=== PATIENT | female | born 1950 | race Caucasian/White ===

== ENCOUNTER 2016-03-12 | Outpatient (CLI) | payer MEDICARE, MEDICAID | END 2016-03-12 14:31 | disposition home or self-care (01) ==

== ENCOUNTER 2016-04-10 | Outpatient (CLI) | payer MEDICARE, MEDICAID | END 2016-04-10 15:01 | disposition home or self-care (01) ==

== ENCOUNTER 2016-04-13 15:45 | Outpatient (CLI) | payer MEDICARE, MEDICAID | END 2016-04-13 15:46 | disposition home or self-care (01) | DX: G89.29 Other chronic pain (principal); I81 Portal vein thrombosis; E86.0 Dehydration; R30.0 Dysuria; F32.9 Major depressive disorder, single episode, unspecified; Z63.4 Disappearance and death of family member; Z74.01 Bed confinement status; D47.3 Essential (hemorrhagic) thrombocythemia; D68.61 Antiphospholipid syndrome; Z79.01 Long term (current) use of anticoagulants; Z79.899 Other long term (current) drug therapy; S80.12XA Contusion of left lower leg, initial encounter; X58.XXXA Exposure to other specified factors, initial encounter; Y92.009 Unspecified place in unspecified non-institutional (private) residence as the place of occurrence of the external cause; Z86.73 Personal history of transient ischemic attack (TIA), and cerebral infarction without residual deficits; Z87.440 Personal history of urinary (tract) infections; Z51.5 Encounter for palliative care ==

== ENCOUNTER 2016-04-19 16:00 | Outpatient (CLI) | payer MEDICARE, MEDICAID | END 2016-04-19 16:01 | disposition home or self-care (01) | DX: G89.29 Other chronic pain (principal); I81 Portal vein thrombosis; D47.3 Essential (hemorrhagic) thrombocythemia; D68.61 Antiphospholipid syndrome; F43.21 Adjustment disorder with depressed mood; F41.9 Anxiety disorder, unspecified; R62.7 Adult failure to thrive; S80.12XD Contusion of left lower leg, subsequent encounter; I69.351 Hemiplegia and hemiparesis following cerebral infarction affecting right dominant side; Z87.440 Personal history of urinary (tract) infections; Z79.899 Other long term (current) drug therapy; Z91.81 History of falling; Z74.01 Bed confinement status; Z60.2 Problems related to living alone; Z79.891 Long term (current) use of opiate analgesic; Z66 Do not resuscitate; Z79.01 Long term (current) use of anticoagulants; Z51.5 Encounter for palliative care; Z63.4 Disappearance and death of family member ==

== ENCOUNTER 2016-04-26 | Outpatient (CLI) | payer MEDICARE, MEDICAID | END 2016-04-26 12:46 | disposition home or self-care (01) ==

== ENCOUNTER 2016-05-13 08:00 | Outpatient (CLI) | payer MEDICARE, MEDICAID | END 2016-05-13 08:01 | disposition home or self-care (01) | DX: Z13.89 Encounter for screening for other disorder (principal) ==

== ENCOUNTER 2016-05-23 11:15 | Outpatient (CLI) | payer MEDICARE, MEDICAID | END 2016-05-23 11:16 | disposition home or self-care (01) | DX: Z51.5 Encounter for palliative care (principal); J32.9 Chronic sinusitis, unspecified; R63.0 Anorexia; F43.21 Adjustment disorder with depressed mood; G89.29 Other chronic pain; I81 Portal vein thrombosis; K59.00 Constipation, unspecified; R19.7 Diarrhea, unspecified; D47.3 Essential (hemorrhagic) thrombocythemia; Z79.899 Other long term (current) drug therapy; K76.6 Portal hypertension; I85.10 Secondary esophageal varices without bleeding; I69.311 Memory deficit following cerebral infarction; I69.318 Other symptoms and signs involving cognitive functions following cerebral infarction; I69.398 Other sequelae of cerebral infarction; R26.89 Other abnormalities of gait and mobility; Z66 Do not resuscitate; Z63.4 Disappearance and death of family member; G20 Parkinson's disease ==

== ENCOUNTER 2016-05-24 08:00 | Outpatient (CLI) | payer MEDICARE, MEDICAID | END 2016-05-24 23:59 | DX: D47.3 Essential (hemorrhagic) thrombocythemia (principal); D68.312 Antiphospholipid antibody with hemorrhagic disorder; D64.9 Anemia, unspecified ==

== ENCOUNTER 2016-05-25 15:10 | Outpatient (CLI) | payer MEDICARE, MEDICAID | END 2016-05-25 15:11 | disposition home or self-care (01) | DX: D47.3 Essential (hemorrhagic) thrombocythemia (principal); D64.9 Anemia, unspecified; D68.32 Hemorrhagic disorder due to extrinsic circulating anticoagulants ==

== ENCOUNTER 2016-06-07 13:00 | Outpatient (CLI) | payer MEDICARE, MEDICAID | END 2016-06-07 13:01 | disposition home or self-care (01) | DX: Z51.5 Encounter for palliative care (principal); J32.9 Chronic sinusitis, unspecified; R63.0 Anorexia; G89.29 Other chronic pain; I81 Portal vein thrombosis; Z79.891 Long term (current) use of opiate analgesic; K58.2 Mixed irritable bowel syndrome; D47.3 Essential (hemorrhagic) thrombocythemia; Z79.899 Other long term (current) drug therapy; D68.61 Antiphospholipid syndrome; K76.6 Portal hypertension; I85.10 Secondary esophageal varices without bleeding; I69.311 Memory deficit following cerebral infarction; I69.318 Other symptoms and signs involving cognitive functions following cerebral infarction; I69.398 Other sequelae of cerebral infarction; R26.89 Other abnormalities of gait and mobility; Z66 Do not resuscitate; Z63.4 Disappearance and death of family member; Z95.828 Presence of other vascular implants and grafts ==

== ENCOUNTER 2016-06-17 12:36 | Outpatient (CLI) | payer MEDICARE, MEDICAID | END 2016-06-17 12:37 | disposition critical access hospital (66) | DX: M79.651 Pain in right thigh (principal); M25.521 Pain in right elbow; W08.XXXA Fall from other furniture, initial encounter; Y92.002 Bathroom of unspecified non-institutional (private) residence as the place of occurrence of the external cause | CPT/HCPCS: A0425; A0429 ==

== ENCOUNTER 2016-06-17 12:42 | Emergency (ER) | payer MEDICARE, MEDICAID | END 2016-06-17 18:33 | disposition home or self-care (01) | DX: S00.83XA Contusion of other part of head, initial encounter (principal); S80.11XA Contusion of right lower leg, initial encounter; S50.01XA Contusion of right elbow, initial encounter; W01.0XXA Fall on same level from slipping, tripping and stumbling without subsequent striking against object, initial encounter; Y92.019 Unspecified place in single-family (private) house as the place of occurrence of the external cause; M16.11 Unilateral primary osteoarthritis, right hip; M17.11 Unilateral primary osteoarthritis, right knee; D68.61 Antiphospholipid syndrome; I10 Essential (primary) hypertension; Z86.73 Personal history of transient ischemic attack (TIA), and cerebral infarction without residual deficits; I85.00 Esophageal varices without bleeding; M19.90 Unspecified osteoarthritis, unspecified site; Z79.01 Long term (current) use of anticoagulants ==

== ENCOUNTER 2016-06-21 09:15 | Outpatient (CLI) | payer MEDICARE, MEDICAID | END 2016-06-21 09:16 | disposition home or self-care (01) | DX: Z51.5 Encounter for palliative care (principal); M25.561 Pain in right knee; M17.11 Unilateral primary osteoarthritis, right knee; J32.0 Chronic maxillary sinusitis; R63.0 Anorexia; F32.9 Major depressive disorder, single episode, unspecified; I81 Portal vein thrombosis; G89.29 Other chronic pain; Z79.891 Long term (current) use of opiate analgesic; K58.2 Mixed irritable bowel syndrome; D47.3 Essential (hemorrhagic) thrombocythemia; Z79.899 Other long term (current) drug therapy; D68.61 Antiphospholipid syndrome; I69.311 Memory deficit following cerebral infarction; I69.398 Other sequelae of cerebral infarction; R26.9 Unspecified abnormalities of gait and mobility; Z66 Do not resuscitate; S00.83XD Contusion of other part of head, subsequent encounter; S50.01XD Contusion of right elbow, subsequent encounter ==

== ENCOUNTER 2016-06-23 08:00 | Outpatient (CLI) | payer MEDICARE, MEDICAID | END 2016-06-23 08:01 | DX: E88.9 Metabolic disorder, unspecified (principal); R68.89 Other general symptoms and signs ==

== ENCOUNTER 2016-06-26 08:00 | Outpatient (CLI) | payer MEDICARE, MEDICAID | END 2016-06-26 08:01 | DX: N39.0 Urinary tract infection, site not specified (principal) ==

== ENCOUNTER 2016-07-01 13:00 | Outpatient (CLI) | payer MEDICARE, MEDICAID | END 2016-07-01 13:01 | DX: R19.5 Other fecal abnormalities (principal) ==

== ENCOUNTER 2016-07-03 13:15 | Outpatient (CLI) | payer MEDICARE, MEDICAID | END 2016-07-03 13:16 | disposition home or self-care (01) | DX: Z51.5 Encounter for palliative care (principal); M25.561 Pain in right knee; J32.9 Chronic sinusitis, unspecified; K52.1 Toxic gastroenteritis and colitis; T36.0X5A Adverse effect of penicillins, initial encounter; K58.2 Mixed irritable bowel syndrome; R63.0 Anorexia; I81 Portal vein thrombosis; G89.29 Other chronic pain; Z79.891 Long term (current) use of opiate analgesic; F32.9 Major depressive disorder, single episode, unspecified; E87.6 Hypokalemia; D47.3 Essential (hemorrhagic) thrombocythemia; Z79.899 Other long term (current) drug therapy; D68.61 Antiphospholipid syndrome; Z63.4 Disappearance and death of family member; M17.0 Bilateral primary osteoarthritis of knee; R41.89 Other symptoms and signs involving cognitive functions and awareness; R41.3 Other amnesia ==

== ENCOUNTER 2016-07-09 22:02 | Outpatient (CLI) | payer MEDICARE, MEDICAID | END 2016-07-09 22:03 | disposition home or self-care (01) | DX: D47.3 Essential (hemorrhagic) thrombocythemia (principal); K21.9 Gastro-esophageal reflux disease without esophagitis; E78.5 Hyperlipidemia, unspecified ==

== ENCOUNTER 2016-07-18 08:00 | Outpatient (CLI) | payer MEDICARE, MEDICAID | END 2016-07-18 08:01 | disposition home or self-care (01) | DX: E87.5 Hyperkalemia (principal) ==

== ENCOUNTER 2016-07-26 10:15 | Outpatient (CLI) | payer MEDICARE, MEDICAID ==
--- NOTE | 2016-07-29 11:36 | CONSULTATION NOTE ---
DATE OF CONSULTATION: 07/26/2016 00:00:00 REQUESTING PROVIDER: Dora Montenegro MD. TIME OF VISIT: 10:15-10:45. TOPIC: Followup palliative care consult. The patient is seen in her home setting, which is now [facility]. BRIEF HISTORY OF PRESENT ILLNESS UPDATE: This is a 65-year-old woman with essential thrombocythemia o n hydroxyurea as well as hypercoagulability state attributed to her antiphospholipid antibody JAK2 di sease. She is currently at [facility] as a result of needing supportive care because of the of her . Her was her primary care provider and was caring for her at home. She has had a very difficult course over the last several months, but currently is doing a little bit bet ter. She though continues to be more introvert and withdrawn and spends much of her time in the room. Her family is attempting to get her relocated closer to her sister and step daughters down in [place] and as a result she was out of the facility for most of the day yesterday. Today, she presents with severe fatigue and had slept poorly last night, so is very tired and less interactive than usual. She does report her abdominal pain is adequately controlled on her current regimen, which is her morphin e 45 mg b.i.d. She does use oxycodone 5 mg tablets depending on her activity level and also her eatin g. She tends to always rate her pain up at an 8, 9 and 10. It is right upper quadrant in nature and t ends to exacerbate after eating and in the late evening, she takes anywhere from 1-4 doses which are 3 tabs at a time, usually with good relief. Out of the last 2 weeks she has had 3 days with 3 doses, otherwise they have mostly been just daily, up to 2. The other symptom that often causes her quite a bit of distress is some intermittent loose stools. Sh e does use Lomotil to control this, usually looks like about 1 time a day, so 3 times in the last 2 w eeks, so this has improved. She had been on antibiotics for sinusitis that had exacerbated this. CODE STATUS: POLST FORM IS A DO NOT RESUSCITATE, LIMITED INTERVENTIONS. USE OF ANTIBIOTICS IF LIFE CA N BE PROLONGED. NO MEDICALLY ASSISTED NUTRITION. HER MEDICAL DPOA IS MOSES, HER STEPDAUGHTER, HER PHON E NUMBER IS [phone] FOR MEDICAL POWER OF SEAM HAMMERER AND HER FINANCIAL DURABLE POWER OF SEAM HAMMERER IS ODILON RAMIREZ, HER BIOLOGIC DAUGHTER. BRIEF SOCIAL HISTORY: The patient is currently at [facility] after the sudden of her on he r Medicaid benefits. The family continuing to try to find an acceptable living situation. The patient though is quite quiet and less interactive today did feel like it was going to be a good fit. She sanford s been receiving counseling with medical palliative care socially responsible investment adviser as this has been very difficul t as far as all these transitions and thus needing to transition yet to another setting and new careg nela. She tends to retreat when this happens and does have intermittent confusion that makes it more difficult sometimes for her to process this information. PERFORMANCE STATUS: The patient is independently transferring to the commode, she does walk short dis tances. She has had some pain with weightbearing, but this has improved. She still needs some assista nce though as far as cueing. Has been discharged from therapy services. Again, the concern is what is her level of care that she might need moving forward, though, does continue to try and be more indep endent. REVIEW OF SYSTEMS: The patient is feeling quite tired and fatigued from her outing yesterday. She is quiet and somewhat withdrawn. HEENT: Denies further trouble swallowing. CARDIOVASCULAR: Denies chest pain. RESPIRATORY: Reports her cough is resolving, mostly notices it at night. Her sinus stuff has improved . GASTROINTESTINAL: Diarrhea has improved. INTEGUMENTARY: Does have a bit of a rash on her right cheek, does not bother her. MUSCULOSKELETAL: She is spending more time in bed, concerned about more deconditioning. NEUROLOGIC: She does have some continued short-term memory issues, some difficulty with word finding and does report her tremors are bothering her more though they are not observed this visit. She does appear sleepy today. She has had more and more difficulty tracking things and often inaccurate in her reporting of symptoms. PSYCHIATRIC: See palliative care discussion. HEMATOLOGIC/IMMUNOLOGIC: Continues to see Oncology monthly. Her potassium is back in normal range at 4.3. PHYSICAL EXAMINATION: GENERAL APPEARANCE: The patient does appear quite frail, fatigued and sleepy. ENT: Her glasses are on. RESPIRATORY: Her breath sounds are clear. VITAL SIGNS: Her temperature is 95.9, O2 saturations 95%, pulse 72, blood pressure 102/64, her curren t weight is 103.9. ABDOMEN: Quite tender to palpation. She does have prominent varicose veins with abdominal distention. SKIN: Color quite pale. She does have a kind of a diffuse rosacea appearing rash on her right cheek. EXTREMITIES: She is in bed, able to move them on command. I did see her ambulate. PALLIATIVE CARE DISCUSSION/WHO IS PRESENT: Myself and the patient. She is reporting severe fatigue fr om her outing yesterday, difficulty sleeping last night. Is feeling quite tired. We kept the conversa tion to the minimum. Agreed I would revisit her next week for further processing of her depression an d anxiety, though she denies any distress at the current visit. IMPRESSION: This is a 65-year-old woman with multiple serious comorbidities, high symptom burden. She is feeling somewhat better, so though, feeling quite over-fatigued from her visit yesterday. At this point in time, it does look like they are moving forward with relocating her. RECOMMENDATIONS/COUNSELING DONE: 1. Right knee pain. The patient declined to get up and ambulate for me. With palpation it does appear that she is doing okay. She has got good range of motion on exam. Has worked with physical therapy. 2. Sinusitis, currently does have some nasal stuffiness, but reports only some coughing at bedtime. O therwise, appears resolved. 3. Diarrhea. Though she has longstanding irritable bowel syndrome, it does appear like she has needed less Lomotil. 4. Anorexia. Her appetite continues to be down though she has not had any further weight loss. She do es have snacks in her room. 5. 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 Cur rently appears manageable. She is on MS Contin 45 mg b.i.d. with oxycodone for breakthrough pain. 5. Depression. She is somewhat withdrawn today. Did have a good visit with her family yesterday. Has been working with the medical palliative care socially responsible investment adviser, is much calmer than the last time I saw her. 6. Hypokalemia. The patient has longstanding hypokalemia. She was high at her last [facility] appointment at 5.6. We did decrease it to 1 tab a day for 2 weeks and will put her back to her baseline b.i.d. She has reported she had been using quite a bit of bananas because she was worried about the potassium, t o her oncologist. She has been on long-term potassium supplement related to her underlying disease pr ocess. TIME SPENT: 30 minutes with greater than 50% of this done in counseling and coordination of care. The patient somewhat fatigued today, less able to participate in exam. We will revisit later CURRENT MEDICATION LIST: Includes 1. Citalopram 30 mg daily with 20 mg tabs. 2. Hydroxyurea 500 mg daily. 3. Potassium chloride 20 mEq. 1 b.i.d. 4. Triazolam 0.25 mg at bedtime p.r.n. 5. Carbidopa/levodopa 25-100 mg 1 tablet b.i.d.. 6. Enoxaparin 60 mg subcutaneous b.i.d.. 7. Gabapentin 300 mg. 1 tab b.i.d. 8. Morphine sulfate extended release 15+30 mg extended release tabs b.i.d. 9. Ranitidine 75 mg 1 tab b.i.d. 10. Docusate sodium 250 mg 1 tablet up to b.i.d. p.r.n. constipation. 11. Fluticasone propionate suspension 50 mcg actuated 1 spray each nostril as needed for runny nose. 12. House bowel program. 13. Cough drops every 2 hours as needed for cough. 14. Imodium AD chewable 2 mg. up to 8 mg in 24 hours. 15. Lomotil tablet 2.5 mg/0.025 mg 1 tab every 6 hours as needed for diarrhea, not to exceed 8 tablet s in 24 hours. 16. Mucinex extended release 600 mg b.i.d. as needed. 17. NyQuil severe cold and flu liquid for cough at bedtime if needed. 18. Ondansetron 8 mg. 1 tab up to 3 times a day p.r.n. nausea. 19. Oxycodone 5 mg 1-3 tabs every 3 hours as needed for pain. 20. Senna 8.6 mg 1 tablet as needed daily as needed. 21. Simethicone tablet 80 mg every 6 hours as needed for gas. 22. Tylenol 325 mg 2 tabs every 4 hours as needed for discomfort or temperature. JOB #: [id number] EXT JOB #:[id number]
== END 2016-07-26 10:16 | disposition home or self-care (01) ==
LOC: PC 10:15
PROVIDERS: ATTEND Nurse Practitioner Adult Health
DX: Z51.5 Encounter for palliative care (principal); M25.561 Pain in right knee; J32.9 Chronic sinusitis, unspecified; R19.7 Diarrhea, unspecified; R63.0 Anorexia; R10.9 Unspecified abdominal pain; D47.3 Essential (hemorrhagic) thrombocythemia; F32.9 Major depressive disorder, single episode, unspecified; E87.6 Hypokalemia; D68.59 Other primary thrombophilia; Z79.891 Long term (current) use of opiate analgesic; Z66 Do not resuscitate; F41.9 Anxiety disorder, unspecified
CPT/HCPCS: 99309

== ENCOUNTER 2016-08-01 20:19 | Outpatient (CLI) | payer MEDICARE, MEDICAID ==
[2016-08-01 16:50] LABS: ALBUMIN/GLOBULIN RATIO 1.1 (1.0-2.2); BILIRUBIN,TOTAL 0.4 mg/dL (0.2-1.0); CREATININE 0.4 mg/dL (0.4-1.0); POTASSIUM 4.5 mmol/L (3.5-5.0); TOTAL PROTEIN 6.5 g/dL (6.7-8.2)
[2016-08-01 16:54] LABS: BASOPHILS % (AUTO) 0.8 %; HCT - HEMATOCRIT 40.6 % (37.0-47.0); HGB - HEMOGLOBIN 13.6 g/dL (12.0-16.0); LYMPHOCYTES % (AUTO) 58.1 %; MEAN CORPUSCULAR HEMOGLOBIN 32.7 pg (27.0-31.0); MEAN CORPUSCULAR HGB CONC 33.4 g/dL (32.0-36.0); MEAN CORPUSCULAR VOLUME 97.9 fL (81.0-99.0); MEAN PLATELET VOLUME 11.5 fL (7.9-10.8); MONOCYTES % (AUTO) 10.5 %; NEUTROPHILS % (AUTO) 27.6 %; RED BLOOD COUNT 4.15 10^6/uL (4.20-5.40); RED CELL DISTRIBUTION WIDTH 16.4 % (12.0-15.0); UNCORRECTED WHITE BLOOD COUNT 5.2 x10^3/uL; WHITE BLOOD COUNT 5.2 x10^3/uL (4.8-10.8)
[2016-08-01 16:57] LABS: BAND NEUTROPHILS % (MANUAL) 0 %
[2016-08-01 17:17] LABS: BASOPHILS % (MANUAL) 3 %; EOSINOPHILS % (MANUAL) 1 %; LYMPHOCYTES % (MANUAL) 37 %; NEUTROPHILS % (MANUAL) 45 %; TOTAL CELLS COUNTED 100
[2016-08-01 17:18] LABS: PLATELET ESTIMATE, MANUAL NORMAL (130-450,000) (NORMAL); PLATELET MORPHOLOGY 4+ GIANT PLATELETS (NORMAL)
[2016-08-01 17:19] LABS: NP AUTO DIFFERENTIAL? YES; NP MAN DIFFERENTIAL? NO
== END 2016-08-01 20:20 | disposition home or self-care (01) ==
LOC: LAB.R 20:19
DX: R68.89 Other general symptoms and signs (principal)
CPT/HCPCS: 80053; 81001; 81003; 85025; 87086

== ENCOUNTER 2016-08-02 09:30 | Outpatient (CLI) | payer MEDICARE, MEDICAID ==
--- NOTE | 2016-08-06 06:54 | CONSULTATION NOTE ---
DATE OF CONSULTATION: 08/02/2016 00:00:00 REQUESTING PROVIDER: Sanchez Montenegro MD TIME OF VISIT: 9:30-10:15. TOPIC: Followup palliative care consult. The patient is seen in her home setting, which is now [facility]. I am following up after a report of an incident on Friday. BRIEF HISTORY OF PRESENT ILLNESS UPDATE: This is a 65-year-old woman with essential thrombocythemia, who is currently on hydroxyurea, as well as hypercoagulability state attributed to her antiphospholip id antibody JAK2 disease on lovenox. She currently resides at [facility] as a result of lindsey marks increased support because of the of her , who had been her primary caregiver. She h as had a more fluctuating course over the last several months and most recently on Monday 07/31 had "an episode." It is unclear specifically what this included, though it was witnessed by the medical palliative care home health care social worker, where the patient who had been quite engaged in a conversation, all of a sudden was unable to talk, was fairly frightened, had lost her ability to verbalize, and it took s everal minutes to recover. Upon examination from the nurse, her blood pressure was 84/64. They had contacted me, and I had reque sted that they call the paramedics as concerned for stroke. Unfortunately, by the time the paramedics came around, the patient had regained consciousness and ability to verbalize, though I am always yolanda pect of her decision-making capacity, she refused to go the hospital. In reflecting upon this, I aske d her why she refused, and she reports she dislikes the hospital, has to wait too long, and nothing e elvira seems to get better. She is very fearful and anxious and dislikes any kind of change, and given t he fact she has no one at this point in time to really relay her history, and she has difficulty desc ribing her symptoms, she finds it a quite frightening experience. Today I do find her with more word finding issues, much more delayed in her responses. Her pupils are equal and reactive to light. Her other neuro signs check out fine. She has equal past due accounts clerk. She can move all extremities. She does admit to some intermittent confusion. She reports it is sometimes hard to f ind the words. She does admit to being somewhat overwhelmed and scared. She reports the staff has bee n "great" and very supportive in this time period. What is new and different is now that she been, over the last 24-48 hours, with some increased incont inence of stool, which she finds quite humiliating. When asked if she could describe a little bit abo ut what happened, she does not think she has had a TIA, for what the description seems most likely ca use, does not appear seizure-like. She reports, "I can't really describe to you," as far as what happ ened from her perspective and memory. The patient on exam does have abdominal tenderness, particularly in the right upper quadrant. She zepeda s have hyperactive bowel tones. She had actually, at the time of our visit, had been incontinent of l oose stool, and seemed to be unaware of this. She has been voiding in the commode. She continues with right leg pain. What is quite prominent now is that she does have a big hematoma about the size of h er orange on her right outer thigh. This does cause her increased pain with weightbearing. She has be en asked several times if she would like to go in and have this further worked up, and she continues to decline any kind of referral or workup at the hospital. The staff report patient's appetite has been poor, that she has been sleeping more, less able to enga ge, has been mostly bedbound and has needed increased assistance transferring to the commode. When I had spoken to her DPOA, stepdaughter Josefa, prior to my examination on Friday night, as I was con cerned about what the next step of the plan was, it was quite obvious to us both that she was not goi ng to be able to meet the criteria to be able to move onto the plan, which had been hopefully they sanford d found a place that was an assisted living. In her workup, I did go ahead and have her labs drawn; t here were no abnormalities from her baseline. We had tried to get a UA, though her white count is not up, and she denies any signs or symptoms of urinary infection and requests that be canceled. She is not feverish or showing any signs at this point in time. CODE STATUS: The POLST form has her as DO NOT RESUSCITATE, LIMITED INTERVENTIONS, USE OF ANTIBIOTICS IF LIFE CAN BE PROLONGED, NO MEDICALLY ASSISTED NUTRITION. Her medical durable power of traffic law attorney is Josefa, her stepdaughter; her phone number is [phone]. Her financial durable power of traffic law attorney is her biological daughter, Kinjal Cary. BRIEF SOCIAL HISTORY: The patient is currently at [facility], after the sudden of her , now for several months. She had actually done a fairly remarkable job of getting back to a place where s he could walk, be more independent, but she is continuing to lose ground over the last several weeks. She is receiving counseling with the medical palliative care home health care social worker and has had a difficult t sarah adjusting to all the transitions. She does have intermittent confusion, which makes this difficul t for staff. She can participate in her decision making but is really not able to weigh the nuances o r consequences between choices. PERFORMANCE STATUS: The patient had been independently transferring. She was able to walk short dista nces, now she is having increased pain in that right leg and difficulty with transfers and weightbear ing. She is much more dependent on the staff over the last few days to weeks. REVIEW OF SYSTEMS CONSTITUTIONAL: The patient is feeling quite fatigued. She wants to just sleep all the time. She is q uiet and withdrawn, having difficulty engaging in the conversation. HEENT: Denies further trouble swallowing. CARDIOVASCULAR: Denies chest pain. RESPIRATORY: She reports her cough is resolving. GASTROINTESTINAL: She reports her "diarrhea," incontinence of her stool is worsened, and she is humil iated. She is having trouble remembering to ask for Lomotil, it has been an effective intervention in the past. Please see conversation below. INTEGUMENTARY: She does have a rash on her right cheek. MUSCULOSKELETAL: She is spending more time in bed. She is more deconditioned. She is much more tremul ous. NEUROLOGIC: She continues to have short-term memory issues; these seem escalated after her episode a couple days ago, when I had seen her on Friday after her trip to [place], she was quite fatigued and w ith cognitive difficulty. It seems to be fluctuating actually quite a bit through the visit, as far a s consistency. Sometimes she staring off and unable to engage in the conversation, and at other times she can pipe in with several sentences and initiate some new thoughts. PSYCHIATRIC: She remains depressed and anxious. HEMATOLOGIC: She continues to see Oncology monthly. Her potassium is back in the normal range at 4.6 on the potassium b.i.d. PHYSICAL EXAMINATION GENERAL APPEARANCE: The patient appears quite frail, fatigued, sleepy. HEENT: Her glasses are on. RESPIRATORY: Her breath sounds are clear. VITAL SIGNS: Her temperature is 95.8, pulse 66, blood pressure 122/72, O2 saturations on room air are at 92%, her current weight is 107 per report. ABDOMEN: Again, quite tender to palpation. She has prominent varicose veins with abdominal distention , quite taut today; bowel tones hyperactive. SKIN: Color quite pale. Rosacea-appearing rash on her right cheek. EXTREMITIES: She is in bed; had difficulty getting her from sitting to standing. She is unable to lisandra ghtbear on that right leg. She does have a fairly large protruding hematoma on that right leg. PALLIATIVE CARE DISCUSSION/WHO IS PRESENT: Myself and the patient. She is quite distressed over the i ncontinence with the stool. I assisted her in getting cleaned up. She was unable, with her tremulousn ess and weakness, to be able to do this independently. She seemed to have been somewhat surprised she had been incontinent, plus needing cueing to follow through on getting assistance. It is unclear how much she understands, as far as the implications of her decline about the ability to further place h er in the assisted living. Given her distress over her current situation and what is going on, I did not further broach this. I talked to Josefa previous to our visit; she said she would talk to her on the phone but was only able to get yes or no questions answered from her. When I asked patient if she remembered talking to Josefa, she could not remember. IMPRESSION: This is a 65-year-old woman with multiple serious comorbidities, high symptom burden, and appears to have had some kind of event, I suspect a transient ischemic attack, on Friday. She is continuing to decline, as far as cognitive and physical status. This is, of course, of concern, as fa r as the implications for further placement options for her. RECOMMENDATIONS/COUNSELING DONE 1. Transient ischemic attack. I did ask the patient if she were to have another episode, to please fo llow through and go in for evaluation. I did recommend that we do some followup currently, though the patient is declining. In weighing benefits and burdens, she feels like there really is nothing more they can do for her, though I did reiterate that it would be helpful to know what was going on. She i s presenting as a failure to thrive today. 2. Right leg pain. She does have a large residual hematoma on her right leg unclear if this is from h er fall a few weeks ago and worsened or new. She is unable to weight bear, this has worsened since last time I saw her, she was having some improvement. She again declined further workup or followup on this, despite it impacting her functional status and adding to her discomfort. 3. Diarrhea, unknown etiology. She does have longstanding irritable bowel syndrome. Dr. Alvarez tried nightly Imodium without any impact. She has responded to Lomotil before. We had a long discussion lisandra ghing the benefits and burdens, given her current humiliation and difficulty remembering to ask for t he Lomotil. I did go ahead and schedule this morning and nighttime, and that she could ask for a thir d dosage in between. 4. Anorexia. Her appetite continues to be down. She has actually had some weight gain, unclear as I c ome in at the breakfast, it had not looked like she had eaten anything. She does have snacks in her r oom. She reports it is just more uncomfortable, and she is fearful of the diarrhea. Eating does cause her increased abdominal pain. 5. 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 She is managed on MS Contin 45 mg b.i.d.; using the oxycodone 15 mg about 2 times a day. 6. Depression. She remains in a very difficult situation; has difficulty processing this now, it is u nclear what will be her long-term plan moving forward. I have left a message for Josefa for further c onversation regarding this. 7. Hypokalemia. The patient does have longstanding hypokalemia. She is back to her baseline 20 mEq b. i.d., and this does seem to be holding her. She has been on long-term potassium supplement. Time spent 45 minutes, with greater than 50% of this done in counseling and coordination of care, fol lowup with the facility staff regarding incident on Friday, followup with family, and anticipatory guidance, as well as weighing benefits and burdens and benefits of further workup with patient. Chantel ent at this point in time has declined any further interventions or workup. She does understand my ex pressed concerns about her current status. JOB #: [id number] EXT JOB #:[id number]
== END 2016-08-02 09:31 | disposition home or self-care (01) ==
LOC: PC 09:30
PROVIDERS: ATTEND Nurse Practitioner Adult Health
DX: Z51.5 Encounter for palliative care (principal); G45.9 Transient cerebral ischemic attack, unspecified; R62.7 Adult failure to thrive; S70.11XA Contusion of right thigh, initial encounter; X58.XXXA Exposure to other specified factors, initial encounter; R19.7 Diarrhea, unspecified; R15.9 Full incontinence of feces; K58.9 Irritable bowel syndrome, unspecified; R63.0 Anorexia; G89.29 Other chronic pain; I81 Portal vein thrombosis; F32.9 Major depressive disorder, single episode, unspecified; E87.6 Hypokalemia; D47.3 Essential (hemorrhagic) thrombocythemia; Z79.899 Other long term (current) drug therapy; D68.61 Antiphospholipid syndrome; Z79.01 Long term (current) use of anticoagulants; Z63.4 Disappearance and death of family member; Z74.01 Bed confinement status; Z66 Do not resuscitate; Z79.891 Long term (current) use of opiate analgesic
CPT/HCPCS: 99310

== ENCOUNTER 2016-08-15 08:00 | Outpatient (CLI) | payer MEDICARE, MEDICAID | END 2016-08-15 08:01 | disposition home or self-care (01) | LOC: LAB.R 08:00 | PROVIDERS: ATTEND Nurse Practitioner Adult Health | DX: A04.7 Enterocolitis due to Clostridium difficile (principal) | CPT/HCPCS: 87493 ==

== ENCOUNTER 2016-08-15 11:15 | Outpatient (CLI) | payer MEDICARE, MEDICAID ==
--- NOTE | 2016-08-15 18:05 | CONSULTATION NOTE ---
DATE OF CONSULTATION: 08/15/2016 00:00:00 REQUESTING PROVIDER: Sanchez Montenegro MD. TIME OF VISIT: 11:40 to 12:30. TOPIC: Followup palliative care consult. The patient seen in her home setting, which is now [facility]. BRIEF HISTORY OF PRESENT ILLNESS: This is a 65-year-old woman with essential thrombocythemia. Current ly on hydroxyurea, as well as hypercoagulability state attributed to her antiphospholipid antibody JA K2 disease on Lovenox. Most recently she did have her viral illness progress to fever. O2 saturations of 90%, complained of sore throat and significantly worsening cough, had felt poorly and then with d ecreased intake over the weekend. Did obtain a chest x-ray which was somewhat vague with right perihi lar infiltrate. Between her decline over the last 2 weeks, symptoms and fragile status, was treated w ith Levaquin for 5 days, which she did complete on 08/10/2016. Unfortunately, her baseline diarrhea w hich is usually 2-6 episodes a day has increased to watery diarrhea frequently with increased inconti nence about 4-6 already today. On examination, she does have liquid watery stool with foul smell. She does have hyperactive bowel tones, lower abdominal cramping, quite tender to touch, is feeling poorl y. No bloody diarrhea, fever or chills. She has been drinking adequate amounts of water, but has had very little food intake for the last 24-48 hours and she is very much distressed over her current sit uation. Her baseline pain is usually abdominal in nature. This is different, though, her baseline is usually right upper quadrant. This is lower abdominal. It is quite tender to palpation, and she is a somewhat distended. It does appear that she is continuing to lose some weight. I do not have a confirmed weig ht today. PHYSICAL EXAMINATION: VITAL SIGNS: Stable at 98.6, O2 saturation 95%, blood pressure 122/62, and pulse at 83. She does have diminished breath sounds in the bases, some upper airway rhonchi that do clear with coughing. She do es complain of feeling wheezy, though no inspiratory or expiratory wheezes are appreciated. SYMPTOM BURDEN: New acute on chronic abdominal pain. Does report feeling quite tired. She does have i ncreased emotional distress. Her roommate had been moved out. The nurse yesterday said this was quite distressing to the patient, that she has been crying since this has happened and she does admit to kane pennington distressed. Part of her relationship with her roommate was that she does kind of oversee and loo k out for her. She is now quite isolated in her current room. CODE STATUS: THE PATIENT IS A DO NOT ATTEMPT RESUSCITATION, LIMITED INTERVENTIONS, USE OF ANTIBIOTICS IF LIFE CAN BE PROLONGED, AND NO MEDICALLY ASSISTED NUTRITION. BRIEF SOCIAL HISTORY: The patient is currently at [facility]. The hope had been to [place] [facility] [place] to her stepdaughter and sister down in [place]. They have lined up an assisted living f dmitri. Unfortunately, given her current level of care needed in the last 2-3 weeks, was unable to f ollow through on this. I did speak to her stepdaughter, Josefa, who is her durable power of senior attorney, later, and her phone number is [phone] about the current situation. I did suggest possibly anot her alternative setting might be an adult family home, but would need to have a nurse oversight in th at setting. Her other daughter Sree feels like this is putting pressure on Josefa as f ar as feeling like she needs to move her from that setting, but has become much more complex given he r Medicaid status and her increasing care needs. PERFORMANCE STATUS: The patient has mostly been bed-bound, only independently transferring currently to the commode with her walker. She had been able to walk short distances, but now is staying isolate d in her room and most of the time in her bed. I would put her at actually a palliative care performa nce status at 40%. REVIEW OF SYSTEMS: CONSTITUTIONAL: The patient is fatigued. She is tearful and withdrawn. HEENT: She denies any trouble swallowing. CARDIOVASCULAR: No chest pain. RESPIRATORY: She reports her cough continues to be problematic. She is not coughing anything up produ ctive, but she is coughing frequently. She wanted, after much discussion, it appears that she wanted an inhaler. Overall, her respiratory symptoms from previous last week have improved. GASTROINTESTINAL: Her diarrhea as noted above. INTEGUMENTARY: She reports her rectal discomfort with her incontinence of stool is causing her distre ss. MUSCULOSKELETAL: She is spending more time in bed, becoming more deconditioned. She reports more trem ulousness. NEUROLOGIC: She continues to have short-term memory issues, though today is speaking in full sentence s, able to answer my questions fairly accurately though she does continue with some word finding and delaying response. PSYCHIATRIC: She remains depressed and anxious. HEMATOLOGIC: She missed her oncology appointment last week. PHYSICAL EXAMINATION: GENERAL APPEARANCE: The patient again appears quite frail, fatigued and tearful. HEENT: Pupils appear normal. RESPIRATORY: As noted above. VITAL SIGNS: As noted above. ABDOMEN: She continues to have prominent varicose veins with some abdominal distention, remains taut. Bowel tones are hyperactive. SKIN: Color quite pale. Her rosacea appearing rash on her right cheek i s fading. EXTREMITIES: She was able to assist getting from sitting to standing to the commode. She was weightbe aring on the right leg today. Her hematoma that was about a size of an orange on her right leg is sta rting to reabsorb. It looks almost like a deflated ball. PALLIATIVE CARE DISCUSSION/WHO IS PRESENT: Myself, the patient and Nette , nurse practitioner. She is quite distressed over her incontinence of stool, the worsening of the diarrhea, is having bindu e difficulty understanding the connection between antibiotics and my concerns for C difficile. She is overwhelmed with the thought of being on yet another round of antibiotics to treat the C difficile. Did discuss weighing benefits and burdens regarding hospitalization versus trying to address her curr ent situation in [facility]. I am concerned given her frail and fragile status, hospitalization is very distressing as far as the patient coping. She dislikes change fairly dramatically so in agreement rep orted I would followup with her daughters, talk to Dr. Alavrez and try and treat in her current situat ion, though if she is worsening, may need to transition to hospital acute care. IMPRESSION: This is a 65-year-old woman with multiple serious comorbidities, high symptom burden, now presents with signs and symptoms of Clostridium difficile. Her respiratory status has improved somew hat, though remains fragile. She presents today as failure to thrive. RECOMMENDATIONS/COUNSELING DONE: 1. Transient ischemic attack noted last visit on 08/02/2016, symptoms appear to have resolved. Her in teractions and cognition appear closer to previous baseline. 2. Diarrhea, suspicious for C difficile. Stool sample was collected and delivered to [facility] as well as update to Dr. Alvarez, her PCP, regarding suspicions. 3. Right leg pain. Does appear to be weightbearing better today. Her residual hematoma is reabsorbing . 4. Anorexia. Her appetite continues to be down. She does look like she has had some weight loss. She did take some yogurt for breakfast. She is pushing fluids. She would like some chicken noodle soup. I did followup with nursing staff regarding this. Eating has at baseline usually increases her abdomin al pain, but now also increases her diarrhea. 5. 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 She is managed on MS Contin 45 mg b.i.d. She is using oxycodone 15 mg about 2 to 3 times a day. 6. Depression. She does remain in a very difficult situation, now with another complication, is feeli ng quite overwhelmed. 7. Moist cough. The patient does appear to have been improving from her viral illness, plus suspected community-acquired pneumonia, but is wanting something to help manage her secretions and perception of wheezing. Did go ahead and order her Combivent Respimat 1 puff q.i.d. with spacer due to the patie nt's satisfaction, after counseling regarding nebulizer versus inhalers. TIME SPENT: Fifty minutes with greater than 50% of this done in counseling and coordination of care, followup with staff, delivery of stool specimen to [facility] lab and followup with PCP. Did spe nd quite a bit of time weighing benefits and burdens as far as hospitalization for the patient. At th is point in time she declines. ADDENDUM: The patient's lab specimen did come back positive. Followup and conversation with Dr. Jazzmine copeland will go ahead and treat with Flagyl 500 mg t.i.d. x10 days, hold her baseline lomotil temporarily. If the patient does worsen, he will followup and most likely transition her to hospitalization or fol low with vancomycin if she does not respond. I did talk to Tong, her DPOA, updating regarding her C difficile, her fragile status, and her ongoing failure to thrive. She will followup with Kinjal, her other sister. I did recommend that they call daily over the weekend just to keep tabs on her and to alert the staff as far as if patient seems to be worsening. JOB #: [id number] EXT JOB #:[id number]
== END 2016-08-15 11:16 | disposition home or self-care (01) ==
LOC: PC 11:15
PROVIDERS: ATTEND Nurse Practitioner Adult Health
DX: Z51.5 Encounter for palliative care (principal); Z86.73 Personal history of transient ischemic attack (TIA), and cerebral infarction without residual deficits; R19.4 Change in bowel habit; M79.604 Pain in right leg; R63.0 Anorexia; R10.9 Unspecified abdominal pain; F32.9 Major depressive disorder, single episode, unspecified; R05 Cough; D69.3 Immune thrombocytopenic purpura; D68.61 Antiphospholipid syndrome; Z66 Do not resuscitate; Z74.01 Bed confinement status; R15.9 Full incontinence of feces; F41.9 Anxiety disorder, unspecified; R41.3 Other amnesia; R62.7 Adult failure to thrive; Z79.891 Long term (current) use of opiate analgesic
CPT/HCPCS: 99310

== ENCOUNTER 2016-08-26 14:45 | Outpatient (CLI) | payer MEDICARE, MEDICAID ==
--- NOTE | 2016-08-27 05:33 | CONSULTATION NOTE ---
DATE OF CONSULTATION: 08/26/2016 00:00:00 REQUESTING PROVIDER: Rex Montenegro MD. TIME OF VISIT 14:[id number]. TOPIC: Followup palliative care consult. The patient is seen in her home setting, which is now [facility]. BRIEF HISTORY OF PRESENT ILLNESS UPDATE: This is a 65-year-old woman with essential thrombocythemia, currently on hydroxyurea as well as hypercoagulability stated to be due to her antiphospholipid antibody JAK2 disease on Lovenox. She has recently been treated for concern for pneumonia on Levaquin for 5 days, the completed on 08/10/2016. Her baseline, diarrhea, increased from 2-6 episodes to 6-10 watery, foul-smelling. She was positive for C difficile on 08/15 and has been treated with Flagyl which her last dose is today. Her stool has firmed up. She is more able to be continent of stool and having less episodes. She does still complain of some lower abdominal pain and cramping and is quite tender to palpation. This is on top of her ongoing chronic right upper quadrant pain. She has had no bloody diarrhea, fever or chills with this. She did have a period with decreased intake, but is back to her baseline. She has had no weight loss. She is at 107. She is much more calm, less depressed and appears much better today. REVIEW OF SYSTEMS: ENT: She continues with mild hearing loss, only mild nasal congestion. CARDIOVASCULAR: No chest pain. RESPIRATORY: She reports she has ongoing chronic cough. She is unable to expectorate. She does have Combivent Respimat ordered which she has not asked. GASTROINTESTINAL: She denies shortness of breath. She does use NyQuil as the cough is most problematic at bedtime. GI: She has not had any nausea, diarrhea is slowing down, her stools were more formed. She continues not necessarily with poor appetite, but does not really like the food and has had some taste changes with the Flagyl and has some early satiety. GENITOURINARY: Denies any dysuria today. MUSCULOSKELETAL: She continues to remain mostly bedbound transferring to the commode only, has some ongoing deconditioning and weakness. INTEGUMENTARY: She still has some rectal irritation, but has improved. NEUROLOGIC: She is somewhat slow in her responses today. She does have ongoing short-term memory issues and poor recall remains unable to really provide adequate history or recall of symptomatology. PSYCHIATRIC: She does seem less depressed. She has had her daughter, Tong, visiting and they continue to talk about the next step. She is somewhat resigned currently to her situation. ENDOCRINE: No history of hypothyroidism or diabetes. HEMATOLOGIC/IMMUNOLOGIC: She had missed her oncology appointment last week and has it rescheduled for next week and she is requesting it be scheduled yet again , I will follow with [place] [facility]. CARDIOVASCULAR: Temperature is 97.5, blood pressure 98/64, O2 saturation 92% on room air, pulse is 70 and regular. ABDOMEN: Slightly distended. Tender to palpation. Bowel tones are less hyperactive. SKIN: She does have some rectal excoriation though it is much more improved than last time. She reports they had run out of the barrier cream wipes and was somewhat distressed with this. EXTREMITIES: She does have a hematoma that covers the full of her patellar. It is nonswelling. She does have adequate range of motion. She was bed bound today. CODE STATUS: THE PATIENT IS A DO NOT ATTEMPT RESUSCITATION, LIMITED INTERVENTIONS, USE OF ANTIBIOTICS IF LIFE CAN BE PROLONGED, AND NO MEDICALLY ASSISTED NUTRITION. BRIEF SOCIAL HISTORY: The patient currently at [facility]. I did speak with Josefa , her stepdaughter. They are now looking at perhaps an adult family home, recognizing that she would be too much care for assisted living, this actually might be a good fit. I did remind her, though, that she does need some assistance with subcutaneous shots for Lovenox as well as her pain medication. We did discuss, weighing benefits and burdens she does have an oncologist in mind that was to her old oncologist and I did recommend that they followup with the palliative care practitioner down in that area because of her complexity and ongoing needs. PERFORMANCE STATUS: The patient remains mostly bedbound, is now more independent in transferring as she has improved. I would put her at a palliative care performance status at 40%. We did discuss perhaps reinstating physical therapy, particularly in light of improving in the future for a move, she did agree to consider it next time. IMPRESSION: This is a 65-year-old woman with multiple serious comorbidities, high symptom burden and recovering from symptoms of C. difficile, that she continues to be quite frail and presents as failure to thrive. RECOMMENDATIONS/COUNSELING DONE: 1. Transient ischemic attacks, noted last visit 08/02, these are currently resolved. She still has some residual cognitive slowing as far as speaking, but appears back to her baseline. 2. Diarrhea multifactorial in origin. She does appear to recovered from her C. Difficile. She is just finishing the Flagyl. She has baseline loose stools. 3. Chronic abdominal pain related occlusion of her portal vein and underlying disease process that she has managed on MS Contin 45 mg b.i.d. She is using oxycodone 15 mg about 2-3 times a day with relief. She does have some acute pain in her lower abdomen. Suspect this will improve coming off the Flagyl. 4. Depression. She does remain again in a very difficult situation and Tong is working as best she can to try and find an alternative living situation. 5. Moist cough. This has improved, but she never did start her Combivent Respimat she has "forgotten" and would have been required to ask for it. We were in agreement to schedule it twice a day for 2 weeks to see if this will help clear up her final residual of her pneumonia. TIME SPENT: Forty-five minutes with greater than 50% of this done in counseling and coordination of care, followup with staff, anticipatory guidance and followup with her DPOA. JOB #: [id number] EXT JOB #:[id number] FRANCIS
== END 2016-08-26 14:46 | disposition home or self-care (01) ==
LOC: PC 14:45
PROVIDERS: ATTEND Nurse Practitioner Adult Health
DX: Z51.5 Encounter for palliative care (principal); I69.318 Other symptoms and signs involving cognitive functions following cerebral infarction; A04.7 Enterocolitis due to Clostridium difficile; G89.29 Other chronic pain; R10.30 Lower abdominal pain, unspecified; R10.11 Right upper quadrant pain; I81 Portal vein thrombosis; F32.9 Major depressive disorder, single episode, unspecified; R05 Cough; D69.3 Immune thrombocytopenic purpura; D68.61 Antiphospholipid syndrome; Z66 Do not resuscitate; Z79.899 Other long term (current) drug therapy; Z79.01 Long term (current) use of anticoagulants; Z79.891 Long term (current) use of opiate analgesic; Z74.01 Bed confinement status; Z87.01 Personal history of pneumonia (recurrent)
CPT/HCPCS: 99310

== ENCOUNTER 2016-08-30 18:15 | Outpatient (CLI) | payer MEDICARE, MEDICAID | END 2016-08-30 18:16 | disposition home or self-care (01) | LOC: LAB.R 18:15 | PROVIDERS: ATTEND Internal Medicine | DX: A04.7 Enterocolitis due to Clostridium difficile (principal) | CPT/HCPCS: 87493 ==

== ENCOUNTER 2016-10-02 11:15 | Outpatient (CLI) | payer MEDICARE, MEDICAID ==
--- NOTE | 2016-10-02 18:36 | PROVIDER PROGRESS NOTE ---
Palliative Care Follow Up - Referral Referring Provider: Dr. Montenegro Time of Visit: [id number] Referral setting: Assisted Facility Referral Reason: Failure to thrive - Information Sources Records Reviewed: RN notes reviewed, Old records reviewed History obtained from: Patient, Caregiver (Clinical staff) Exam limitations: Clinical condition (patient with cognitive limitations; memory issues; and depression) - History of Present Illness Update Brief HPI Update: This is a 65 year old woman with essential thrombocytopenia on hydroxyurea, managed by Dr. Montenegro, and hypercoagulbility state due to her antiphospholipid antibody JAK2 disease on enoxaparin. She has had a difficult spring with treatment of sinusitis, pneumonia, then resulting Cdfif x 2, finishing last round of vancomycin on 09/10. Her functional status so had been impacted by injury to leg from a fall, resulting in hematoma, and now is mostly bedbound/ chair bound with transfers to commode in her room. She reports the pain has resolved but worried about falls and reinjury, she would like to initiate walking again. She also continues with cognitive changes, word finding, disoriented to time, and unclear if she is tracking well. Need to give on question/concept at a time to elicit appropriate response. She remains weight neutral currently, but being supported with Med [facility], pain back to baseline, had exacerbated with C. Diff, and depression continues with distress of being in jail. Social History - Living Situation Living arrangement: correction Support System: Patient lost her in May, necessitating a move to [facility]. She has had variable health and so remains. Her step daughter Josefa is her DPOA, and Kinjal her other daughter managing financial affairs. Has been difficult as she is Medicaid and with higher care needs to find appropriate placement. Medications/Allergies - Medications Home Medications: Ambulatory Orders Medication Instructions Recorded Confirmed Enoxaparin [Lovenox] 60 mg SUBQ BID 12/30/13 10/02/16 Hydroxyurea [Hydrea] 500 mg PO DAILY 12/30/13 10/02/16 Morphine Sulfate [Ms Contin] 15 mg PO Q12H 12/30/13 10/02/16 oxyCODONE [Roxicodone] 5 - 15 mg PO Q3HR PRN 12/30/13 10/02/16 Gabapentin 300 mg PO BID 02/25/14 10/02/16 Citalopram [CeleXA] 20 mg PO DAILY 02/21/15 10/02/16 Diphenoxylate/Atropine [Lomotil] 1 tab PO Q6HR PRN 09/12/15 07/09/16 Morphine Sulfate [Ms Contin] 30 mg PO Q12H 12/13/15 10/02/16 Potassium Chloride [Klor-Con M20] 20 meq PO BID 07/08/16 10/02/16 Acetaminophen [Tylenol] 650 mg PO Q4HR PRN MDD 3000 mg 10/02/16 10/02/16 Carbidopa/Levodopa [Carbidopa-Levo 25 - 100 mg PO BID 10/02/16 10/02/16 ER 25-100 Tab] Ipratropium/Albuterol [Combivent 2 puffs INH Q4HR PRN 10/02/16 10/02/16 Respimat] Medipass 30 ml PO TID 10/02/16 Nyquil 30 ml PO QPM PRN 10/02/16 Ondansetron [Zofran Odt] 8 mg PO TID PRN 10/02/16 10/02/16 Ranitidine HCl 75 mg PO BID 10/02/16 10/02/16 Senna [Senokot] 8.6 mg PO DAILY PRN 10/02/16 10/02/16 Simethicone [Gas Relief] 80 mg PO Q6HR PRN 10/02/16 10/02/16 Temazepam 7.5 mg PO QPM 10/02/16 10/02/16 - Allergies Allergies/Adverse Reactions: Allergies Allergy/AdvReac Type Severity Reaction Status Date / Time codeine Allergy Intermediate Rash Verified 12/30/13 16:25 Sulfa (Sulfonamide Allergy Itching Verified 10/10/15 13:21 Antibiotics) tetracycline Allergy Itching Verified 10/10/15 13:21 Review of Systems - Constitutional Constitutional: reports: Fatigue, Weakness - Eyes Eyes: reports: Corrective lenses - Ears, Nose & Throat Ears, Nose & Throat: reports: Nasal congestion, Postnasal drainage (has not using Flonase, discontinues as PRN, patient has difficulty remembering to ask for things) - Cardiovascular Cariovascular: reports: Lightheadedness, Decr. exercise tolerance. denies: Chest pain - Respiratory Respiratory: reports: Cough (unchanged from baseline, most likely attributed to post nasal drip, uses Nyquil at night), SOB with exertion - Gastrointestinal Gastrointestinal: reports: Other (reports stools are soft, loose, continues with incontinence though) - Genitourinary Genitourinary: reports: Frequency - Musculoskeletal Musculoskeletal: reports: Stiffness, Muscle weakness - Integumentary Integumentary: reports: Dryness - Neurological Neurological: reports: Memory problems, Abnormal gait, Other (delayed speech, word finding, UE tremors flucutuate) - Psychiatric Psychiatric: reports: Depression, Anxiety, Delusions, Other (remains perseverative on other patient "wandering" doesn't feel like can rest/relax at night, facililty aware and following up). denies: Suicidal - Hematologic/Lymphatic Hematologic/Lymphatic: reports: Recurrent infections - All Other Systems All Other Systems: reports: Reviewed and negative Physical Examination - Vital Signs Temperature: 97.7 C Pulse Rate: 72 Respiratory Rate: 18 O2 Saturation: 97 Blood Pressure: 92/62 - Physical Exam General Appearance: positive: Alert Eyes Bilateral: positive: Normal inspection ENT: positive: Other (limited white coating on tongue, no buccal lesions, patient with) Neck: positive: Trachea midline Respiratory: positive: Breath sounds nml. negative: Wheezes Cardiovascular: positive: Regular rate & rhythm Abdomen: positive: Guarding (tender ruq which is basline), Other (hyperactive bowel tones) Skin: positive: Pallor, Other (rectal irritation resolved, no symptoms of pressure despite bed bound status) Extremities: positive: Full ROM, No pedal edema Neurologic/Psychiatric: positive: Disoriented to time, Slurred/abnml speech, Depressed mood/affect, Other (tremors UE, mild today) Palliative Care - POLST Patient has POLST: Yes POLST Status: DNR, Limited Interventions Pain: Pain improved, Location (right upper quadrant, lower abdominal pain resolving), Severity (reports mod/severe at baseline, using oxycodone 15 mg for BTP about 1-2 a day) Drowsiness: Mild (1-3) (fatigue significant per report, staff reports she sleeps on and off all day, stays in room with lights off) Nausea: None Anxiety: Mild (1-3) Dyspnea: None Anorexia: Mild (1-3) (reports early satiety, doesn't like the food choices often why not eating, has had meetings with motion study engineer, can have other choices- but doesn't like often because cold) Insomnia: Sleeps poorly (patient reports can't sleep because worried about someone coming in, staff report she does appear sleeping at night most times) Feelings of wellbeing/Perceived Quality of Life: Worsening Performance Status: Previous level of function prior to this episode - patient had a few months ago prior to severe fall been ambulating with walker, would like to attempt again. Current level of functioning-patient sometimes transfers independently, if not feeling well calls for help per her report. Palliative Care Performance Status 40% - Palliative Care Discussion: Patient reports feeling down, tired of being here, ready to consider change from current setting, had been fairly unhappy about everything in general. Did not get to Dr. Montenegro visit or reschedule, expressing wishes not to go anymore, but reminded her she is still getting treatment from her, has not had labs since July, and may be something that might be of benefit to help with her fatigue. Did agree to at least labs and will make decision based on outcome of this. Discussed current goals, if wants to transition needs to work on getting stronger and more independent, willing and acceptable of PT expressed during visit. Is very dissatisfied with current quality of life, '"just want to give up ". Doesn't think anything is going to make much of a difference. Has POLST in place, current stablized though frail. Impression and Recommendations - Palliative Care Impression: This is a 65 year old woman with multiple serious co-morbidities, has had multiple infections this last spring, most recently finishing vanco for C diff . She remains with depressed mood, multiple complaints, and unhappy given her current social situation. Her symptoms are improved, but at high risk for sequela of falls, recurrent infections, and further cognitive decline. Recommendations/Counseling Done: 1. Essential Thrombocythemia. Follow up on appointment/labs with Dr. Montenegro. Patient cancelled appt in August r/t c diff, did not get labs or rescheduled. Call to the [facility] spoke with Marcy Myrick, will send orders for labs to check status and will reschedule appt. and send to [facility]. 2. Fatigue, multifactorial in origin, including deconditioning with bedbound status, unknown if labs abnormalities etiology, decreased intake, and underlying depression. 3. Chronic abdominal pain related to portal vein occlusion and underlying disease process, currently back to baseline, no need to titrate. 4. Cough etiology most likely post nasal drip. Reordered Flonase 50 mcg 1 spray BID each nostril scheduled. 5. Muscle weakness. Referral made for PT for strengthening and support patient' goal to ambulate again. 5. Advanced Care Planning. Patient unclear where current process is in finding a new setting, follow up with Josefa, had her mother in hospital so not been moving forward, nor has been up here. She will start working on process again. Message left for Palliative Care Mortgage Loan Computation Clerk to see patient soon. Time Spent: 60 minutes with greater than 50% in counseling for depression/goals of care and coordination of care with PT/COW/MAC staff.
== END 2016-10-02 11:16 | disposition home or self-care (01) ==
LOC: PC 11:15
PROVIDERS: ATTEND Nurse Practitioner Adult Health
DX: Z51.5 Encounter for palliative care (principal); D47.3 Essential (hemorrhagic) thrombocythemia; R53.83 Other fatigue; G89.29 Other chronic pain; R05 Cough; M62.81 Muscle weakness (generalized); Z79.899 Other long term (current) drug therapy; D68.61 Antiphospholipid syndrome; Z79.01 Long term (current) use of anticoagulants; Z74.01 Bed confinement status; F32.9 Major depressive disorder, single episode, unspecified; Z87.01 Personal history of pneumonia (recurrent); Z86.19 Personal history of other infectious and parasitic diseases; Z66 Do not resuscitate; Z79.891 Long term (current) use of opiate analgesic; Z91.81 History of falling; I81 Portal vein thrombosis
CPT/HCPCS: 99310

== ENCOUNTER 2016-10-03 08:00 | Outpatient (CLI) | payer MEDICARE, MEDICAID ==
[2016-10-04 00:17] LABS: BASOPHILS % (AUTO) 3.1 %; EOSINOPHILS % (AUTO) 3.4 %; HCT - HEMATOCRIT 40.3 % (37.0-47.0); HGB - HEMOGLOBIN 12.9 g/dL (12.0-16.0); LYMPHOCYTES % (AUTO) 37.1 %; MEAN CORPUSCULAR HEMOGLOBIN 33.6 pg (27.0-31.0); MEAN CORPUSCULAR HGB CONC 31.9 g/dL (32.0-36.0); MEAN CORPUSCULAR VOLUME 105.3 fL (81.0-99.0); MEAN PLATELET VOLUME 11.1 fL (7.9-10.8); MONOCYTES % (AUTO) 19.7 %; NEUTROPHILS % (AUTO) 36.7 %; RED BLOOD COUNT 3.82 10^6/uL (4.20-5.40); RED CELL DISTRIBUTION WIDTH 16.9 % (12.0-15.0); UNCORRECTED WHITE BLOOD COUNT 4.9 x10^3/uL; WHITE BLOOD COUNT 4.9 x10^3/uL (4.8-10.8)
[2016-10-04 00:18] LABS: BAND NEUTROPHILS % (MANUAL) 0 %
[2016-10-04 00:24] LABS: ALBUMIN/GLOBULIN RATIO 1.1 (1.0-2.2); BILIRUBIN,TOTAL 0.4 mg/dL (0.2-1.0); CALCIUM 9.3 mg/dL (8.5-10.3); CREATININE 0.4 mg/dL (0.4-1.0); POTASSIUM 4.5 mmol/L (3.5-5.0); TOTAL PROTEIN 6.4 g/dL (6.7-8.2)
[2016-10-04 00:43] LABS: BASOPHILS % (MANUAL) 4 %; EOSINOPHILS % (MANUAL) 3 %; LYMPHOCYTES % (MANUAL) 30 %; NEUTROPHILS % (MANUAL) 45 %; NP AUTO DIFFERENTIAL? YES; NP MAN DIFFERENTIAL? NO; PLATELET ESTIMATE, MANUAL NORMAL (130-450,000) (NORMAL); TOTAL CELLS COUNTED 100
== END 2016-10-03 08:01 | disposition home or self-care (01) ==
LOC: LAB.R 08:00
DX: N39.0 Urinary tract infection, site not specified (principal)
CPT/HCPCS: 80053; 83540; 83615; 84466; 85025

== ENCOUNTER 2016-10-22 14:00 | Outpatient (CLI) | payer MEDICARE, MEDICAID ==
--- NOTE | 2016-10-22 23:18 | PROVIDER PROGRESS NOTE ---
Palliative Care Follow Up - Referral Referring Provider: Dr. Dora Montenegro Time of Visit: [phone] Referral setting: [facility] Facility - Information Sources Records Reviewed: RN notes reviewed History obtained from: Patient, Caregiver Exam limitations: Clinical condition - History of Present Illness Update Brief HPI Update: This is a wilmer 66 year old woman with essential thrombocythemia on hydroxyurea ; and hypercoagulopathy state due to her antiphospholipid antibody JAK2 disease on live long enoxaparin. She is managed by Dr. Montenegro. She had recurrent infections over the spring with sinusitis, pneumonia, UTI's and resulting C. diff x 2. She had a couple of falls that resulting in hematomas that were painful and rendered her almost bedbound, she most recently though as continued to improve, is responding to physical therapy and able to walk with front wheeled walker. She presents today bright and engaged, continues as a result of a stroke with some left sided deficits improved, after missing doses of enoxaparin 2 years ago. She continues to struggle with word finding, mixing up information at time, but for the most part can engage in conversation. She does show deficits as far as decision making; has STM issues and does not always understand the nuances of information presented. She is best given yes/no format when eliciting responses. She remains weight neutral. Patient is getting ready to transfer to an Adult family home in [place] ([facility] [phone] ; cell [phone]). She has toured with her daughter Kinjal and is moving forward with the transition. She has underlying abdominal pain chronic, right upper quadrant related to occlusion of her portal vein and varicosities secondary to underlying disease processes. Social History - Living Situation Living arrangement: [facility] Living Situation: Other (She has lived at [facility] since of her in May) Support System: Her who passes was her primary caregiver, and managed in their own home with [facility]. Her daughter Kinjal Cary [phone] is her biological daughter , and her financial DPOA and lives her on [facility]. Josefa aSndy [phone] is her step daughter who is medical DPOA, though this may be transfered over to [facility] at some point, as Josefa lives in [place]. She has a sister in [place] as well, the [place] had [place], but have had trouble finding Medicaid bed. Medications/Allergies - Medications Home Medications: Ambulatory Orders Medication Instructions Recorded Confirmed Enoxaparin [Lovenox] 60 mg SUBQ BID 12/30/13 10/23/16 Hydroxyurea [Hydrea] 500 mg PO DAILY 12/30/13 10/23/16 Morphine Sulfate [Ms Contin] 15 mg PO Q12H 12/30/13 10/23/16 oxyCODONE [Roxicodone] 5 - 15 mg PO Q3HR PRN 12/30/13 10/23/16 Gabapentin 300 mg PO BID 02/25/14 10/23/16 Citalopram [CeleXA] 20 mg PO DAILY 02/21/15 10/23/16 Diphenoxylate/Atropine [Lomotil] 1 tab PO Q6HR PRN 09/12/15 10/23/16 Morphine Sulfate [Ms Contin] 30 mg PO Q12H 12/13/15 10/23/16 Potassium Chloride [Klor-Con M20] 20 meq PO BID 07/08/16 10/23/16 Acetaminophen [Tylenol] 650 mg PO Q4HR PRN MDD 3000 mg 10/02/16 10/23/16 Carbidopa/Levodopa [Carbidopa-Levo 25 - 100 mg PO BID 10/02/16 10/23/16 ER 25-100 Tab] Ipratropium/Albuterol [Combivent 2 puffs INH Q4HR PRN 10/02/16 10/23/16 Respimat] Medipass 30 ml PO TID 10/02/16 10/23/16 Nyquil 30 ml PO QPM PRN 10/02/16 10/23/16 Ondansetron [Zofran Odt] 8 mg PO TID PRN 10/02/16 10/23/16 Ranitidine HCl 75 mg PO BID 10/02/16 10/23/16 Senna [Senokot] 8.6 mg PO DAILY PRN 10/02/16 10/23/16 Simethicone [Gas Relief] 80 mg PO Q6HR PRN 10/02/16 10/23/16 Temazepam 7.5 mg PO QPM 10/02/16 10/23/16 Saccharomyces Boulardii [Florastor] 1 tab PO DAILY 10/23/16 10/23/16 - Allergies Allergies/Adverse Reactions: Allergies Allergy/AdvReac Type Severity Reaction Status Date / Time codeine Allergy Intermediate Rash Verified 12/30/13 16:25 Sulfa (Sulfonamide Allergy Itching Verified 10/10/15 13:21 Antibiotics) tetracycline Allergy Itching Verified 10/10/15 13:21 Review of Systems - Constitutional Constitutional: reports: Fatigue, Weakness, Other (106.2). denies: Fever, Chills - Eyes Eyes: reports: Vision loss, Corrective lenses - Ears, Nose & Throat Ears, Nose & Throat: reports: Hearing loss, Nasal congestion, Postnasal drainage - Cardiovascular Cariovascular: reports: Chest pain, Exertional dyspnea, Decr. exercise tolerance. denies: Edema, Lightheadedness - Respiratory Respiratory: reports: SOB with exertion. denies: Cough - Gastrointestinal Gastrointestinal: reports: Abdominal pain (reports some increase in lower abdomen; crampy pain; lomotil over weekend 1 x for loose stool; no change consistency), Diarrhea, Poor appetite (attributes to the food; on med pass). denies: Bloody stools, Nausea - Genitourinary Genitourinary: reports: Urgency, Incontinence - Musculoskeletal Musculoskeletal: reports: Stiffness (patient with improvement; but still remains deconditioned from prolong bed rest is ambulating with walker around room and longer distances in halls), Limited range of motion, Muscle weakness - Integumentary Integumentary: reports: Rash (rosacea on nose) - Neurological Neurological: reports: General weakness, Memory problems, Other (tremors bilat in arms, improved today; reports fluctuates) - Psychiatric Psychiatric: reports: Depression, Anxiety. denies: Suicidal - Endocrine Endocrine: reports: Intolerance to cold - Hematologic/Lymphatic Hematologic/Lymphatic: reports: Recurrent infections, Other (hx of anemia and need for iron infusions) - All Other Systems All Other Systems: reports: Reviewed and negative Physical Examination - Vital Signs Temperature: 97.4 C Pulse Rate: 64 Respiratory Rate: 18 O2 Saturation: 94 (ra at rest) Blood Pressure: 108/72 - Physical Exam General Appearance: positive: No acute distress, Anxious Eyes Bilateral: positive: Normal inspection ENT: positive: No signs of dehydration. negative: Oral lesions Neck: positive: Trachea midline, Lymphadenopathy (L). negative: Lymphadenopathy (R) Respiratory: positive: Breath sounds nml Cardiovascular: positive: Regular rate & rhythm Abdomen: positive: Tenderness, Guarding (patient with chronic RUQ tenderness) Skin: positive: Dryness Extremities: positive: No pedal edema, Other. negative: Full ROM Neurologic/Psychiatric: positive: Mood/affect nml, Disoriented to time Palliative Care - POLST Patient has POLST: Yes POLST Status: DNR, Limited Interventions Pain: Pain unchanged Drowsiness: None Nausea: None Anxiety: Mild (1-3) (baseline anxiety; increased with impending move) Dyspnea: None Anorexia: Mild (1-3) (has remained weight neutral with supplements; dislikes the food; has snacks available) Insomnia: Sleeps poorly (patient recently changed sleeping medications related to insurance issues; was on triazolam supervisor intermediates; recently switched to temazepam 7.5 mg low dose, may need to titrate up) Constipation: No Feelings of wellbeing/Perceived Quality of Life: Improved Performance Status: Patient toileting her self on commode, has four wheeled walker, able to ambulate short distances with walker, still deconditioned with LE weakness, hematoma right leg resolving so able to bear weight. Some recent falls but no acute injury, was making improvement with PT would recommended PT in new setting for mobility, safety, and progressive exercise program. - Palliative Care Discussion: Surrogate decision maker- Josefa Singh;step daughter; patient looking forward to move, worried about loosing the support of the Palliative Care Team. Have reached out to see what resources may be available in the [place] area, so far none identified other than program at [facility]. Will be able to be followed by Dora Montenegro oncologist over in [place], had backed down to lab draws monthly; to evaluate and then schedule if infusion or follow up needed. Will follow up with Dr. Montenegro about making appointment with their PC team. PCP per Vashti at [facility] arranged visit to [facility], will reach out regarding complexity of patient and follow up. Patient will benefit from ongoing PT support as well. Will include face to face at end of visit. Processed/counseling regarding feelings of loss and grief as transitions from current setting. Results - Lab Results Lab results reviewed: Yes Lab and Imaging Results: Currently labs stable Impression and Recommendations - Palliative Care Impression: This is a 66 year old woman with many co-morbidities and moderate symptom burden transitioning from the jail to an adult family home in the next couple of days. Medications set up for transfer to local pharmacy, [facility] arranging for PCP coverage, will cont. with Dr. Montenegro. Recommend home PT services and palliative care support as available. Patient frail but improved. Recommendations/Counseling Done: 1. Chronic abdominal pain related to occlusion of portal vein and underlying disease processes. Remains stable on MS Contin 45 mg BID with oxycodone 15 mg for breakthrough pain. She averages about 2 doses/24 hours. Having some increase in lower abdominal cramping, one loose stool over weekend. PCP started on Florastor 250 mg BID for maintenance. Inst. if recurrent lab ordered to r/o any concerns of recurrent C. diff if needed. 2. Depression, patient has improved over last few weeks, receiving support through Palliative Surgical Services Asst. Would benefit from ongoing counseling and support. Has limited insight and or ability to process complex feelings, but still actively grieving loss of , home, and now further loss with transition to new setting. 3. Deconditioning. Patient has done will and engaged in therapy and increasing activity. Will benefit from ongoing PT. Face to Face. Patient is homebound secondary considerable and taxing effort to leave her home setting to access services related to fatigue and muscle weakness. She has lower extremetry weakness, residual deficits LE leg from stroke, and balance issues. PT would be of benefit for home exercise program, education/adaptation of fall risk in new environment, and caregiver training for cueing and managing her in new setting. 4. Essential Thrombocythemia. Will facilitate transfer of care to [facility] office of Dr. Montenegro. Will be important to continue monthly monitoring of labs and follow up. Patient has been stable last couple of months, but transitioning to new setting will need oversight to manage medical appointments. 5. Advanced care planning. Patient has POLST in place, remains consistent with DNR/Limited interventions with patients goals of care. She may have the Medical DPOA transitioned to Kinjal Cary related to proximity. Patient often refuses to go to hospital as she is easily overwhelmed by the environment and does not always understand the nuances related to decision making so important to notify family to be included or advocate for her. She is aware of the seriousness of her condition, if she were to be more debilitated has voiced many times if she were to not return to some level of independence she would not want her suffering prolonged. Please feel free to contact me Slime MISHRA, Palliative Care for any information or assistance I might provide in future as I have been following her since 12/2014, she is very resilient but complicated [phone]/ cell [phone] Time Spent: 60 minutes with greater than 50% done in counseling for pain/depression/anxiety and anticipatory guidance and coordination of care for transition planning.
== END 2016-10-22 14:01 | disposition home or self-care (01) ==
LOC: PC 14:00
PROVIDERS: ATTEND Nurse Practitioner Adult Health
DX: Z51.5 Encounter for palliative care (principal); G89.29 Other chronic pain; I81 Portal vein thrombosis; F32.9 Major depressive disorder, single episode, unspecified; D47.3 Essential (hemorrhagic) thrombocythemia; D68.61 Antiphospholipid syndrome; I69.398 Other sequelae of cerebral infarction; R26.89 Other abnormalities of gait and mobility; Z79.899 Other long term (current) drug therapy; Z79.01 Long term (current) use of anticoagulants; Z66 Do not resuscitate; Z79.891 Long term (current) use of opiate analgesic; Z87.440 Personal history of urinary (tract) infections; Z87.01 Personal history of pneumonia (recurrent); Z86.19 Personal history of other infectious and parasitic diseases
CPT/HCPCS: 99310